=== PATIENT | female | born 1990 | race Caucasian/White ===

== ENCOUNTER 2016-06-19 23:41 | Emergency (ER) | payer OTHER ==
[~2016-06-19 23:41] MED LIST: ACYCLOVIR400 MG PO; ALBUTEROL HFA INH; AMOXICILLIN500 M1 PO; APRESOLINE10 M1 PO; B12 HEALTH1000 MCG/1; CIPRO PO; CIPRO250 M1 PO; CLONIDINE PO; CLOTRIMAZOLE15 GM; DIFLUCAN PO; DOXYCYCLINE HY100 M1 PO; FAMOTIDINE PO; FLAGYL PO; FLONASE 0.05% N16 G1; HYDROCODON-ACE1 EAC7 PO; IBUPROFEN100 MG PO; IBUPROFEN600 MG PO; KCL PO; LISINOPRIL2.5 MG; LORTAB 10-3251 EACH PO; LORTAB 10-5001 EACH; MACROBID100 M1 PO; MACRODANTIN PO; METHADONE HCL10 MG PO; METHADONE PO; METROGEL60 GM VAG; METRONIDAZOLE250 MG; NAPROSYN250 M1 PO; NASAL DECONGEST30 MG PO; NO MEDICATIONS; PERCOCET5/325 PO; PHENERGAN25 M1; PHENERGAN25 M1 PO; PREDNISONE PO; PRENATAL VITAMI1 TA4 PO; PRENATAL1 TA1; PRENATAL1 TA1 PO; PYRIDIUM PO; ROBITUSSIN DM118 ML; RYBIX ODT50 MG; SUBOXONE 12 MG1 EACH; SUBOXONE 2 MG-1 EAC1 PO; SUBOXONE 2 MG-1 EACH SL; SUBOXONE 8 MG-1 EAC1; VISTARIL PO; ZESTRIL10 M1 PO; ZOVIRAX800 MG PO
[2016-06-20 00:58] LABS: URINE SOURCE CLEAN CATCH
[2016-06-20 01:05] LABS: URINE APPEARANCE CLEAR; URINE BILIRUBIN NEG (NEG); URINE BLOOD NEG (NEG); URINE COLOR YELLOW; URINE GLUCOSE NEG (NEG); URINE KETONE NEG (NEG); URINE LEUKOCYTE ESTERASE NEG (NEG); URINE NITRATE NEG (NEG); URINE PROTEIN NEG (NEG); URINE SPECIFIC GRAVITY 1.002 (1.003-1.035); URINE UROBILINOGEN 0.2 MG/DL (NEG)
[2016-06-20 01:20] LABS: CULTURE INDICATED? NO
== END 2016-06-20 01:45 | disposition home or self-care (01) ==
LOC: CED 23:41
PROVIDERS: Emergency Medicine
DX: R53.81 Other malaise (principal); R11.0 Nausea; F17.200 Nicotine dependence, unspecified, uncomplicated; Z98.890 Other specified postprocedural states
CPT/HCPCS: 81003; 84703; 99283